=== PATIENT | male | born 1960 | race African-American/Black ===

== ENCOUNTER 2017-08-02 10:58 | Emergency (ER) | payer OTHER ==
[~2017-08-02] VITALS: Ht 198.1 cm; Wt 103.4 kg
[~2017-08-02 10:58] MED LIST: 'PARAFON FORTE500 M1 PO; AMLODIPINE BESYL5 MG PO; AMOXIL500 MG PO; CLARITIN10 MG PO; CLINDAMYCIN HC300 MG PO; CYCLOBENZAPRINE5 M3 PO; EPI EZ PEN1 MG/ML IM; HYDROCODONE BIT1 T11 PO; KEFLEX500 MG PO; MEDROL DOSEPAK4 MG PO; MOTRIN800 MG PO; Motrin,Rufen800 MG PO; NAPROSYN500 MG PO; NKHM; NORCO 325 MG-101 TAB PO; PEPCID20 MG PO; VICODIN 5/500 505 MG PO
== END 2017-08-02 13:10 | disposition home or self-care (01) ==
LOC: ED 10:58
DX: T33.531A Superficial frostbite of right finger(s), initial encounter (principal); T33.532A Superficial frostbite of left finger(s), initial encounter; F17.200 Nicotine dependence, unspecified, uncomplicated; Z96.652 Presence of left artificial knee joint; Z98.890 Other specified postprocedural states; Y92.9 Unspecified place or not applicable

== ENCOUNTER 2021-01-23 01:41 | Emergency (ER) | payer OTHER ==
[~2021-01-23] VITALS: Ht 195.5 cm; Wt 103.4 kg
== END 2021-01-23 04:45 | disposition home or self-care (01) ==
LOC: ED 01:41
DX: M25.521 Pain in right elbow (principal); I10 Essential (primary) hypertension; Z79.899 Other long term (current) drug therapy; Z96.652 Presence of left artificial knee joint

== ENCOUNTER 2021-03-13 11:36 | Emergency (ER) | payer OTHER ==
[~2021-03-13] VITALS: Ht 195.5 cm; Wt 103.4 kg
[2021-03-13] MEDS ORDERED: NAPROXEN250 MG PO (12:19)
[2021-03-13] MEDS ORDERED: TYLENOL325 M1 PO (12:19)
[2021-03-13] MEDS ORDERED: CYCLOBENZAPRINE10 MG PO (12:19)
== END 2021-03-13 12:45 | disposition home or self-care (01) ==
LOC: ED 11:36
DX: M54.41 Lumbago with sciatica, right side (principal); G89.29 Other chronic pain; Z79.899 Other long term (current) drug therapy; Z96.652 Presence of left artificial knee joint